=== PATIENT | female | born 1965 ===

== ENCOUNTER 2017-03-11 05:39 | Emergency (ER) | payer BC ==
--- NOTE | 2017-03-11 06:17 | C.PDOC ---
History Of Present Illness 51 year old female presents to the ER with a complaint of generalized body aches , fever, chills, nasal congestion, cough, and sore throat for the past week. Patient reports taking OTC theraflu with no relief, she reports her symptoms have been worsening which prompted visit. Denies recent travel, sick contact, chest pain, or SOB. Time Seen by Provider: 03/11/17 05:56 Chief Complaint (Nursing): Flu-like Symptoms History Per: Patient History/Exam Limitations: no limitations Onset/Duration Of Symptoms: Days Current Symptoms Are (Timing): Still Present Location Of Pain: Diffuse Myalgias Sick Contacts (Context): None Associated Symptoms: Fever, Chills, Sore Throat, Cough, Myalgias, Nasal Congestion Ear Symptoms: Bilateral: None Recent travel outside of the [place]: No Past Medical History Reviewed: Historical Data, Nursing Documentation, Vital Signs Vital Signs: Last Vital Signs Temp 102.4 F H 03/11/17 06:51 Pulse 118 H 03/11/17 06:43 Resp 22 03/11/17 06:43 BP 139/93 H 03/11/17 06:43 Pulse Ox 96 03/11/17 06:50 - Medical History PMH: HTN, Hypercholesterolemia Family History: States: Unknown Family Hx - Social History Hx Alcohol Use: No Hx Substance Use: No - Immunization History Hx Tetanus Toxoid Vaccination: No Hx Influenza Vaccination: No Hx Pneumococcal Vaccination: No Review Of Systems Constitutional: Positive for: Fever, Chills ENT: Positive for: Nose Congestion, Throat Pain Cardiovascular: Negative for: Chest Pain Respiratory: Positive for: Cough. Negative for: Shortness of Breath Musculoskeletal: Positive for: Other (Generalized body aches) Physical Exam - Physical Exam Appears: Non-toxic Skin: Normal Color, Warm, Dry Head: Atraumatic, Normacephalic Eye(s): bilateral: Normal Inspection Ear(s): Bilateral: Normal Nose: Normal Oral Mucosa: Moist Throat: Normal, No Erythema, No Exudate, Other (Normal tonsils) Neck: Normal, No Midline Cervical Tenderness, No Paracervical Tenderness, Supple Lymphatic: Adenopathy Chest: Symmetrical, No Tenderness Cardiovascular: Rhythm Regular (Tachycardic) Respiratory: Normal Breath Sounds, No Rales, No Rhonchi, No Wheezing Gastrointestinal/Abdominal: Soft, No Tenderness Neurological/Psych: Oriented x3, Normal Speech ED Course And Treatment O2 Sat by Pulse Oximetry: 96 (Room air) Pulse Ox Interpretation: Normal Progress Note: Rapid flu and rapid strep ordered, results were negative. Motrin and benadryl administered. Patient is resting comfortably in the ER in no acute distress, she reports improvement of her symptoms HR decreased but incraeasing temp, tylenol po ordered. Pt feels comfortable being discharged home and is requesting to leave now . She is advised to take Rx meds as instructed and to follow up with her PMD for further evaluation or return to the ER if symptoms worsen. Pt understands and agrees with the plan. Disposition Counseled Patient/Family Regarding: Diagnosis, Need For Followup, Rx Given - Disposition Referrals: Garrett Granados [Staff Provider] - Disposition: HOME/ ROUTINE Disposition Time: 06:40 Condition: STABLE Additional Instructions: INCREASE FLUIDS ( EVETTE LIQUIDO) EVETTE LAS MEDICINAS GAGARIR CON AGUA TIBIA SIGUE CON VINES DOCTOR REGRESA SI SE EMPEORA Prescriptions: Acetaminophen 975 mg PO Q4 #30 tablet Benzonatate [Tessalon Perles] 100 mg PO TID #20 sgl Cetirizine HCl [Zyrtec] 10 mg PO DAILY #20 capsule Ibuprofen [Motrin] 600 mg PO Q6H #24 tab Instructions: Viral Syndrome (ED) Forms: [employer] (Serbian) Print Language: ESTONIAN - Clinical Impression Clinical Impression: Influenza-like illness - 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 - Scribe Statement The provider has reviewed the documentation as recorded by the Scribjulianne Hernandez All medical record entries made by the Pamibjulianne were at my direction and personally dictated by me. I have reviewed the chart and agree that the record accurately reflects my personal performance of the history, physical exam, medical decision making, and the department course for this patient. I have also personally directed, reviewed, and agree with the discharge instructions and disposition.
[2017-03-11 06:43] VITALS: TEMP 102.4
[2017-03-11 06:59] VITALS: BP 134/86; PULSE 112; RESP 18; O2SAT 99
== END 2017-03-11 06:59 | disposition home or self-care (01) ==
LOC: C.ER 05:39
DX: J11.1 Influenza due to unidentified influenza virus with other respiratory manifestations (principal); I10 Essential (primary) hypertension; E78.00 Pure hypercholesterolemia, unspecified

== ENCOUNTER 2017-03-17 23:29 | Emergency (ER) | payer BC ==
[2017-03-17 23:56] VITALS: RESP 18; O2SAT 96
[2017-03-18] MEDS ORDERED: Promethazine/Cod 6.25mg-10mg/5ml Syr UD PO STA (00:01)
[2017-03-18] MEDS ORDERED: Albuterol-Ipratrop 3 mg / 0.5 (3 ml) UD IH STA ×2 (00:01→00:56)
--- NOTE | 2017-03-18 00:02 | C.PDOC ---
History Of Present Illness 51 yo female w/o significant PMHx come in for re-evaluation of cold sx for past week associated with bodyaches, malaise, and worsening of cough. Pt reports, " unable to sleep due to constant cough , productive with yellow sputum". Pt admits, was seen here week ago, received Rx: Zyrtec, tessalon with out improvement. Otherwise, pt denies high fever, severe headache, dizziness, vertigo, ear discharges, tinnitus, drooling, dyspnea, CP, palpitation wheezing, abd. pain, V/D, back pain, UTI sx. Ambulate to Ed for evaluation, not in any apparent distress. Occasional dry cough noted. Time Seen by Provider: 03/17/17 23:58 Chief Complaint (Nursing): Flu-like Symptoms History Per: Patient Onset/Duration Of Symptoms: Gradual Past Medical History Reviewed: Historical Data, Nursing Documentation, Vital Signs Vital Signs: Last Vital Signs Temp 98.4 F 03/18/17 01:27 Pulse 90 03/18/17 01:27 Resp 18 03/18/17 01:27 BP 135/87 03/18/17 01:27 Pulse Ox 96 03/18/17 01:27 - Medical History PMH: HTN, Hypercholesterolemia Surgical History: No Surg Hx Family History: States: No Known Family Hx - Social History Hx Tobacco Use: No Hx Alcohol Use: No Hx Substance Use: No - Immunization History Hx Tetanus Toxoid Vaccination: No Hx Influenza Vaccination: No Hx Pneumococcal Vaccination: No Review Of Systems Except As Marked, All Systems Reviewed And Found Negative. Constitutional: Positive for: Chills, Malaise. Negative for: Fever ENT: Positive for: Nose Discharge, Nose Congestion, Throat Pain. Negative for: Ear Discharge, Throat Swelling Cardiovascular: Negative for: Chest Pain, Palpitations, Edema, Light Headedness Respiratory: Positive for: Cough, Shortness of Breath. Negative for: Wheezing Gastrointestinal: Negative for: Nausea, Vomiting, Abdominal Pain, Diarrhea Genitourinary: Negative for: Incontinence Musculoskeletal: Negative for: Neck Pain, Back Pain Skin: Negative for: Rash Neurological: Negative for: Altered Mental Status, Headache, Dizziness Physical Exam - Physical Exam Appears: Well, No Acute Distress, Other (occasional dry cough) Skin: Normal Color, Warm, Dry, No Rash Head: Normacephalic Eye(s): bilateral: PERRL Ear(s): Bilateral: Normal Nose: No Flaring, Discharge (B/L congestion with clear rhinorrhea) Oral Mucosa: Moist, No Drooling Tongue: Normal Appearing Lips: Normal Appearing Throat: Erythema (mild B/L), No Drooling Neck: Trachea Midline, Supple Cardiovascular: Rhythm Regular, No Murmur, No JVD Respiratory: No Decreased Breath Sounds, No Accessory Muscle Use, No Stridor, Wheezing (scattered bibsailar wheezing, exp) Gastrointestinal/Abdominal: Soft, No Tenderness, No Distention, No Guarding Back: No CVA Tenderness Extremity: Normal ROM, No Deformity, No Swelling Neurological/Psych: Oriented x3, Normal Speech ED Course And Treatment O2 Sat by Pulse Oximetry: 96 Pulse Ox Interpretation: Normal - Radiology CXR: Interpreted by Me, Viewed By Me CXR Interpretation: Yes: No Acute Disease Progress Note: On re-evaluation, pt is awake, comfortable, not in any apparent distress. Afebrile, hemodynamicaly stable. Non-toxic, tolerate PO well in ED. PulsEOx 96% RA. ENT: no acute findings. Neck: SUpple, (-) meningeal sign , (-) JVD. Lungs: CTA B/L, BS equal B/L. Abd: benign, (-) guaridng, (-) rebound. Neurologicaly intact. CXR (-). Pt has clinical findings c/w bronchitis. Pt advised. ref. to f/u with PMD in 2-3 days for re-eval. return to ED if any worsening or new changes. Disposition Counseled Patient/Family Regarding: Studies Performed, Diagnosis, Need For Followup, Rx Given - Disposition Referrals: Non [facility] Provider, [Primary Care Provider] - [facility] [Outside] Disposition: HOME/ ROUTINE Disposition Time: 00:47 Condition: STABLE Additional Instructions: ENCOURAGE FLUIDS TAKE MEDICATION PRESCRIBED FOLLOW UP WITH PMD IN 2-3 DAYS FOR RE-EVALUATION. RETURN TO ED IF ANY WORSENING OR NEW CHANGES. Prescriptions: Albuterol HFA [Ventolin HFA 90 mcg/actuation (8 g)] 1 puff IH Q6 #1 inhaler Azithromycin [Zithromax] 250 mg PO DAILY #4 tab Prednisone [Deltasone] 40 mg PO DAILY #6 tablet Promethazine/Codeine [Phenergan/Codeine Oral Syrup] 10 ml PO TID #90 ml Instructions: Acute Bronchitis (ED) Forms: Accompanied To ED By:, [employer] (Danish), Work Excuse Print Language: TAIWANESE - Clinical Impression Clinical Impression: Bronchitis
[2017-03-18] MEDS ORDERED: Albuterol-Ipratrop 3 mg / 0.5 (3 ml) UD ONE ×2 (00:11→00:59)
[2017-03-18] MEDS ORDERED: Promethazine/Cod 6.25mg-10mg/5ml Syr UD ONE (00:13)
[2017-03-18 01:28] VITALS: BP 135/87; PULSE 90; TEMP 98.4
--- NOTE | 2017-03-18 09:41 | RAD ---
HISTORY: Cough COMPARISON: No prior. TECHNIQUE: Chest PA and lateral FINDINGS: LUNGS: No active pulmonary disease. PLEURA: No significant pleural effusion identified. No pneumothorax apparent. CARDIOVASCULAR: Normal. OSSEOUS STRUCTURES: No significant abnormalities. VISUALIZED UPPER ABDOMEN: Normal. OTHER FINDINGS: None. IMPRESSION: No active disease.
== END 2017-03-18 01:27 | disposition home or self-care (01) ==
LOC: SUPCPDRO 23:29 → C.ER 23:29
DX: J40 Bronchitis, not specified as acute or chronic (principal)